=== PATIENT | male | born 1975 | race Caucasian/White ===

== ENCOUNTER 2017-05-18 14:54 | Outpatient (CLI) | payer MEDICAID | END 2017-05-18 14:55 | disposition home or self-care (01) | LOC: SC 14:54 | PROVIDERS: ATTEND Specialist | DX: G47.33 Obstructive sleep apnea (adult) (pediatric) (principal); G47.00 Insomnia, unspecified | CPT/HCPCS: 99205; 99212 ==

== ENCOUNTER 2017-06-28 20:28 | Outpatient (CLI) | payer MEDICAID | END 2017-06-28 20:29 | disposition home or self-care (01) | LOC: SC 20:28 | PROVIDERS: ATTEND Specialist | DX: G47.33 Obstructive sleep apnea (adult) (pediatric) (principal) | CPT/HCPCS: 95810 ==

== ENCOUNTER 2017-07-22 10:32 | Outpatient (CLI) | payer MEDICAID | END 2017-07-22 10:33 | disposition home or self-care (01) | LOC: SC 10:32 | PROVIDERS: ATTEND Specialist | DX: G47.33 Obstructive sleep apnea (adult) (pediatric) (principal) | CPT/HCPCS: 99212; 99214 ==

== ENCOUNTER 2017-09-20 08:58 | Outpatient (CLI) | payer MEDICAID | END 2017-09-20 08:59 | disposition home or self-care (01) | LOC: SC 08:58 | PROVIDERS: ATTEND Nurse Practitioner Family | DX: G47.33 Obstructive sleep apnea (adult) (pediatric) (principal) | CPT/HCPCS: 99212; 99214 ==

== ENCOUNTER 2017-10-27 08:50 | Outpatient (CLI) | payer MEDICAID | END 2017-10-27 08:51 | disposition home or self-care (01) | LOC: SC 08:50 | PROVIDERS: ATTEND Nurse Practitioner Family | DX: G47.33 Obstructive sleep apnea (adult) (pediatric) (principal) | CPT/HCPCS: 99212; 99214 ==

== ENCOUNTER 2017-11-15 14:56 | Outpatient (CLI) | payer MEDICAID | END 2017-11-15 14:57 | disposition home or self-care (01) | LOC: SC 14:56 | PROVIDERS: ATTEND Nurse Practitioner Family | DX: G47.33 Obstructive sleep apnea (adult) (pediatric) (principal); G47.00 Insomnia, unspecified | CPT/HCPCS: 99212; 99214 ==

== ENCOUNTER 2018-01-31 10:57 | Outpatient (CLI) | payer MEDICAID | END 2018-01-31 10:58 | disposition home or self-care (01) | LOC: SC 10:57 | PROVIDERS: ATTEND Nurse Practitioner Family | DX: G47.33 Obstructive sleep apnea (adult) (pediatric) (principal) | CPT/HCPCS: 99212; 99214 ==

== ENCOUNTER 2018-04-20 13:00 | Outpatient (CLI) | payer MEDICAID ==
--- NOTE | 2018-04-20 15:25 | XRAY Report ---
Reason: NON DISPLACED FRACTURE OF MIDDLE RT RING FINGER Procedure Date: 04/20/2018 Accession Number: [id number] / [id number] Procedure: XR - Finger(s) RT CPT Code: FULL RESULT: EXAM: RIGHT FOURTH DIGIT RADIOGRAPHY EXAM DATE: 04/20/2018 01:13 PM. CLINICAL HISTORY: NON DISPLACED FRACTURE OF MIDDLE RT RING FINGER. COMPARISON: None. TECHNIQUE: 3 views. FINDINGS: Bones: There is an intra-articular fracture of the distal fourth middle phalanx with overlying soft tissue swelling. Alignment is anatomic. IMPRESSION: Fourth middle phalanx intra-articular fracture RADIA
== END 2018-04-20 13:01 | disposition home or self-care (01) ==
LOC: DI 13:00
PROVIDERS: ATTEND Family Medicine
DX: S62.624D Displaced fracture of middle phalanx of right ring finger, subsequent encounter for fracture with routine healing (principal)
CPT/HCPCS: 73140; 93005

== ENCOUNTER 2018-04-20 14:28 | Outpatient (CLI) | payer MEDICAID | END 2018-04-20 14:29 | disposition home or self-care (01) | LOC: RT.N 14:28 | PROVIDERS: ATTEND Family Medicine | DX: Z53.9 Procedure and treatment not carried out, unspecified reason (principal) ==

== ENCOUNTER 2018-12-08 16:01 | Outpatient (CLI) | payer MEDICAID | END 2018-12-08 16:02 | disposition home or self-care (01) | LOC: SC 16:01 | PROVIDERS: ATTEND Nurse Practitioner Family | DX: G47.33 Obstructive sleep apnea (adult) (pediatric) (principal); E66.9 Obesity, unspecified; Z68.34 Body mass index [BMI] 34.0-34.9, adult | CPT/HCPCS: 99212; 99214 ==

== ENCOUNTER 2019-01-29 20:26 | Outpatient (CLI) | payer MEDICAID | END 2019-01-29 20:27 | disposition home or self-care (01) | LOC: SC 20:26 | PROVIDERS: ATTEND Internal Medicine Pulmonary Disease | DX: G47.33 Obstructive sleep apnea (adult) (pediatric) (principal) | CPT/HCPCS: 95810 ==

== ENCOUNTER 2019-02-20 15:15 | Outpatient (CLI) | payer MEDICAID ==
--- NOTE | 2019-02-20 15:40 | CONSULTATION NOTE ---
Information from patient questionnaire entered by Tish Mccall. I have reviewed and concur with the information entered by Tish Mccall. This document represents the service I personally performed and the decisions made by me, Teena Piedra MD, [facility]. - History of Present Illness Mr. Sandoval returned for follow up of the sleep study she had on 01/29/2019. The polysomnography showed that the patient had normal sleep efficiency. The sleep architecture, however, was abnormal for sleep fragmentation and reduced amount of time spent in REM and slow wave sleep (N3). Respiratory monitoring showed severe obstructive sleep apnea-hypopnea (AHI = 48.3) associated with frequent arousals, oxyhemoglobin desaturation and moderate hypoxia (alexa oxygen saturation of 79%). Baseline oxygen saturation was normal. The respiratory events occurred independently of sleep stage and body position (supine AHI = 98.2; non-supine = 39.52). Snore was loud in intensity. There was no significant periodic leg movement of sleep. Cardiac rhythm was normal sinus rhythm without significant arrhythmia. No abnormal behavior (parasomnia) observed during the night. The patient was informed of these findings. I explained to him the pathophysiology behind obstructive sleep apnea. We then spent quite a bit of time discussing different treatment options. For mild obstructive sleep apnea, surgery and oral appliance are alternatives to nasal CPAP therapy but in moderate or severe cases, nasal CPAP is the most effective and reliable treatment. Weight loss in an obese individual is strongly recommended. After some discussion, he opted to go try CPAP again. Two years ago he had to return the equipment because he was not compliant. The reason was because he did not have time to sleep. He did recall significant improvement on the treatment. He wore a nasal mask. His equipment came from [employer]. Initial [place] Sleepiness Scale score: 19 Current [place] Sleepiness Scale score: 18 - Allergies/Medications Allergies and home medications reviewed: Yes - Review of Systems Review of systems same as previous: Yes - Impression 1. Obstructive Sleep Apnea-Hypopnea Syndrome, severe (was moderate 2 years ago), associated with moderate hypoxemia and sleep fragmentation. Obviously this is the cause of the patients symptoms of unrefreshed sleep, and excessive daytime sleepiness. As mentioned above, the patient will be restarted on CPAP set at 9 - 13 cmH2O. A manual CPAP/BiPAP titration study will be scheduled. - Plan 1. Prescription made for an autoCPAP, heated humidifier, and related supplies. 2. Attempt to lose weight and avoid alcohol consumption near bedtime. 3. The patient is again cautioned about driving until his sleepiness completely resolves on the CPAP therapy. 4. Schedule a manual CPAP/BiPAP titration study and return for follow up afterward.
== END 2019-02-20 15:16 | disposition home or self-care (01) ==
LOC: SC 15:15
PROVIDERS: ATTEND Internal Medicine Pulmonary Disease
DX: G47.33 Obstructive sleep apnea (adult) (pediatric) (principal)
CPT/HCPCS: 99212; 99213

== ENCOUNTER 2019-11-23 08:03 | Outpatient (CLI) | payer OTHER ==
--- NOTE | 2019-11-23 08:52 | Ultrasound Report ---
Reason: SUPERFICIAL THROMBOPHLEBITIS Procedure Date: 11/23/2019 Accession Number: [id number] / [id number] Procedure: US - Duplex Ext Veins Right CPT Code: Final Report FULL RESULT: EXAM: RIGHT LOWER EXTREMITY VENOUS ULTRASOUND EXAM DATE: 11/23/2019 08:39 AM. CLINICAL HISTORY: Superficial thrombophlebitis. COMPARISON: None. TECHNIQUE: Real-time sonographic vascular imaging was performed by the stockroom selector through the lower extremity utilizing both color-flow and Doppler spectral analysis. Multiple career representative static images were saved for review. FINDINGS: Common Femoral Vein (CFV): Normal. CFV-GSV Junction: Normal. Profunda Femoral Vein (PFV): Normal. Femoral Vein (FV) Prox: Normal. Femoral Vein (FV) Mid: Normal. Femoral Vein (FV) Dist: Normal. Popliteal Vein: Normal. Posterior Tibial Veins: Normal. Peroneal Veins: Normal. Contralateral Side CFV: Normal. Other: Varicosed veins without thrombus were seen at the patient's area of pain and discomfort in the medial right thigh. IMPRESSION: No evidence for deep venous thrombosis. RADIA
== END 2019-11-23 08:04 | disposition home or self-care (01) ==
LOC: DI 08:03
PROVIDERS: ATTEND Family Medicine
DX: I80.9 Phlebitis and thrombophlebitis of unspecified site (principal)

== ENCOUNTER 2020-12-14 18:02 | Outpatient (CLI) | payer OTHER ==
--- NOTE | 2020-12-14 21:14 | Ultrasound Report ---
PROCEDURE: Duplex Ext Veins Right INDICATIONS: HAND NUMBNESS TECHNIQUE: Real-time imaging, as well as color and pulse Doppler interrogation, was performed of the right upper extremity deep veins from the inferior neck to the antecubital fossa. COMPARISON: None. FINDINGS: The internal jugular vein, visualized portions of the subclavian vein, axillary vein, and brachial vein are free of intraluminal thrombus. Where physically possible, the veins are normally c ompressible. Color and pulse Doppler demonstrate normal intraluminal flow, with expected phasicity a nd pulsatility. Additional scanning of the cephalic and basilic veins of the superficial system demo nstrate normal compressibility, without thrombus. IMPRESSION: 1. No evidence of deep venous thrombosis in the right upper extremity. Reviewed by: Fuentes Khan MD on 12/14/2020 9:12 PM PDT Approved by: Fuentes Khan MD on 12/14/2020 9:12 PM PDT Station ID: [id number]
--- NOTE | 2020-12-15 00:01 | Ultrasound Report ---
PROCEDURE: Duplex Upr Ext Arterial Bilat INDICATIONS: HAND NUMBNESS TECHNIQUE: Color and pulse Doppler interrogation was performed of both upper extremity arterial systems, with im age documentation. COMPARISON: None. FINDINGS: Right upper extremity: Subclavian artery (mid): 63 cm/sec, with triphasic flow. Axillary artery: 85 cm/sec, with triphasic flow. Brachial artery (proximal): 101 cm/sec, with triphasic flow. Brachial artery (distal): 106 cm/sec, with triphasic flow. Radial artery (proximal): 66 cm/sec, with triphasic flow. Radial artery (mid): 54 cm/sec, with triphasic flow. Radial artery (distal): 60 cm/sec, with triphasic flow. Ulnar artery (proximal): 80 cm/sec, with triphasic flow. Ulnar artery (mid): 38 cm/sec. with triphasic flow. Ulnar artery (distal): 59 cm/sec, with triphasic flow. Catherine-scale imaging description: No bulky atherosclerotic plaque visualized. Left upper extremity: Subclavian artery (mid): 60 cm/sec, with triphasic flow. Axillary artery: 72 cm/sec, with triphasic flow. Brachial artery (proximal): 87 cm/sec, with triphasic flow. Brachial artery (distal): 87 cm/sec, with triphasic flow. Radial artery (proximal): 87 cm/sec, with triphasic flow. Radial artery (mid): 70 cm/sec, with triphasic flow. Radial artery (distal): 75 cm/sec. with triphasic flow. Ulnar artery (proximal): 50 cm/sec, with triphasic flow. Ulnar artery (mid): 27 cm/sec, with triphasic flow. Ulnar artery (distal): 29 cm/sec. with triphasic flow. Catherine-scale imaging description: No bulky atherosclerotic plaque visualized. IMPRESSION: 1. No evidence of focal stenosis in the right or left upper extremity arteries. Reviewed by: Fuentes Khan MD on 12/15/2020 12:00 AM PDT Approved by: Fuentes Khan MD on 12/15/2020 12:00 AM PDT Station ID: [id number]
== END 2020-12-14 18:03 | disposition home or self-care (01) ==
LOC: DI 18:02
PROVIDERS: ATTEND Physician Assistant Medical
DX: R20.2 Paresthesia of skin (principal)
CPT/HCPCS: 93930

== ENCOUNTER 2021-04-23 15:29 | Outpatient (CLI) | payer OTHER ==
[2021-04-23 18:02] LABS: BASOPHILS # (AUTO) 0.1 10^3/uL (0.0-0.1); EOSINOPHILS # (AUTO) 0.2 10^3/uL (0.0-0.7); EOSINOPHILS % (AUTO) 2.9 %; HCT - HEMATOCRIT 45.9 % (42.0-52.0); HGB - HEMOGLOBIN 15.4 g/dL (14.0-18.0); LYMPHOCYTES # (AUTO) 1.4 10^3/uL (1.5-3.5); LYMPHOCYTES % (AUTO) 26.8 %; MEAN CORPUSCULAR HGB CONC 33.6 g/dL (32.0-36.0); MEAN CORPUSCULAR VOLUME 89.3 fL (80.0-94.0); MEAN PLATELET VOLUME 11.2 fL (7.4-11.4); MONOCYTES # (AUTO) 0.4 10^3/uL (0.0-1.0); MONOCYTES % (AUTO) 7.9 %; NEUTROPHILS # (AUTO) 3.2 10^3/uL (1.5-6.6); NEUTROPHILS % (AUTO) 60.8 %; PLT - PLATELET COUNT 203 10^3/uL (130-450); RED BLOOD COUNT 5.14 10^6/uL (4.70-6.10); RED CELL DISTRIBUTION WIDTH 12.6 % (12.0-15.0); WHITE BLOOD COUNT 5.2 x10^3/uL (4.8-10.8)
[2021-04-23 18:21] LABS: ALBUMIN 4.7 g/dL (3.2-5.5); ALBUMIN/GLOBULIN RATIO 1.4 (1.0-2.2); ALKALINE PHOSPHATASE 73 IU/L (42-121); ALT ALANINE AMINOTRANSFERASE 85 IU/L (10-60); AST ASPARTATE AMINOTRANSFERASE 42 IU/L (10-42); BILIRUBIN,TOTAL 0.8 mg/dL (0.2-1.0); BUN - BLOOD UREA NITROGEN 17 mg/dL (6-20); CALCIUM 9.1 mg/dL (8.5-10.3); CARBON DIOXIDE - CO2 27 mmol/L (21-32); CHLORIDE 102 mmol/L (101-111); CHOL/HDL RATIO 4.9 (<5.0); CHOLESTEROL 204 mg/dL; CREATININE 0.9 mg/dL (0.6-1.2); GFR - MDRD 91 (>89); GLUCOSE 86 mg/dL (70-100); HDL CHOLESTEROL 42 mg/dL; LDL CHOLESTEROL,CALCULATED 144 mg/dL; LDL/HDL RATIO 3.4 (<3.6); POTASSIUM 3.7 mmol/L (3.5-5.0); SODIUM 139 mmol/L (135-145); TRIGLYCERIDES 91 mg/dL; VLDL CHOLESTEROL 18 mg/dL
[2021-04-23 18:31] LABS: THYROID STIMULATING HORMONE 1.8 uIU/mL (0.34-5.60)
== END 2021-04-23 15:30 | disposition home or self-care (01) ==
LOC: LAB.N 15:29
PROVIDERS: ATTEND Physician Assistant Medical
DX: Z00.00 Encounter for general adult medical examination without abnormal findings (principal); Z12.5 Encounter for screening for malignant neoplasm of prostate
CPT/HCPCS: 36415; 80053; 80061; 83721; 84153; 84443; 85025